=== PATIENT | male | born 1980 | race Two or more races ===

== ENCOUNTER 2020-04-14 12:29 | Emergency (ER) | payer OTHER ==
[2020-04-14] MEDS ORDERED: LIDOCAINE HCL 2% (50ML VIAL) INF ONE (12:47)
[2020-04-14] MEDS ORDERED: LIDOCAINE HCL 2% (20ML MULTI-DOSE VIAL) ONE (12:48)
[2020-04-14] MEDS ORDERED: DIPHTH,PERTUSS(ACELL),TET 0.5 ML DISP.SYRIN IM ONE ×2 (12:49→12:58)
[2020-04-14 13:31] VITALS: BP 126/87; PULSE 80; TEMP 98.7; BMI 29.7
== END 2020-04-14 13:33 | disposition home or self-care (01) ==
LOC: FER 12:29
PROC: 3E0234Z Introduction of Serum, Toxoid and Vaccine into Muscle, Percutaneous Approach (ICD-10-PCS; principal; 2020-04-14)
DX: S61.209A Unspecified open wound of unspecified finger without damage to nail, initial encounter (principal)
CPT/HCPCS: 90715; 99284-25